=== PATIENT | female | born 1990 | race Caucasian/White ===

== ENCOUNTER 2018-07-28 07:13 | Inpatient (IN) | payer BC ==
[2018-07-28] MEDS ORDERED: Ampicillin 2 GM AdvVial IV ONE (07:43)
[2018-07-28] MEDS ORDERED: Sodium Chloride 0.9% 100 ML ONE (07:43)
[2018-07-28] MEDS ORDERED: Lactated Ringers 1,000 ML ONE (07:43)
[2018-07-28] MEDS ORDERED: Calcium Carbonate 500 MG Tab.Chew PO PRN (07:44)
[2018-07-28] MEDS ORDERED: Ondansetron 4 MG/2 ML SDV IVPUSH PRN ×2 (07:44→08:00)
[2018-07-28] MEDS ORDERED: Sodium Chloride 0.9% 10 ML Syringe FLUSH PRN (07:44)
[2018-07-28] MEDS ORDERED: Nalbuphine 20 MG/ML 1 ML Syringe IVPUSH PRN (07:44)
[2018-07-28] MEDS ORDERED: Oxytocin/Lactated Ringers 10 UNIT/1,000 ML BAG IV SCH ×2 (07:45→11:45)
[2018-07-28] MEDS ORDERED: Lactated Ringers 1,000 ML IV SCH (07:45)
[2018-07-28] MEDS ORDERED: Ampicillin 2 GM in Sodium Chloride 0.9% 100 ML IV ONE (08:00)
[2018-07-28] MEDS ORDERED: ePHEDrine 50 MG/ML SDV IVPUSH PRN (08:00)
[2018-07-28] MEDS ORDERED: Phenylephrine 1 MG in Sodium Chloride 0.9% 10 ML IV SCH (08:00)
[2018-07-28] MEDS ORDERED: fentaNYL 100 MCG/2 ML SDV EPIDUR PRN (08:00)
[2018-07-28] MEDS ORDERED: Bupivacaine/fentaNYL/NS 100 ML Bag EPIDUR SCH (08:15)
--- NOTE | 2018-07-28 10:08 | PCM.PREANE ---
Preanesthetic Assessment - Anesthesia/Transfusion/Family Hx Anesthesia History: Prior Anesthesia Without Reaction (only a prior epidural) Family History of Anesthesia Reaction: No Transfusion History: No Prior Transfusion(s) Intubation History: Unknown - Review of Systems General: No Symptoms (stuffy nose, cough) Pulmonary: No Symptoms Cardiovascular: No Symptoms (history of being slightly anemic) Gastrointestinal: No Symptoms (GERD), Diarrhea, Vomiting Neurological: No Symptoms Other: Reports: None - Physical Assessment NPO Status Date: 07/28/18 NPO Status Time: 10:00 Pulse: 84 O2 Sat by Pulse Oximetry: 99 Respiratory Rate: 18 Blood Pressure: 104/68 Temperature: 36.6 C Vital Signs: Last Vital Signs Temp 36.6 C 07/28/18 07:44 Pulse 84 07/28/18 07:44 Resp 18 07/28/18 07:44 BP 104/68 07/28/18 07:44 Pulse Ox Height: 1.6 m Weight: 83.007 kg ASA Class: 2 Mental Status: Alert & Oriented x3 Airway Class: Mallampati = 2 Dentition: Reports: Normal Dentition, Caries Thyro-Mental Finger Breadths: 3 Mouth Opening Finger Breadths: 3 ROM/Head Extension: Full Lungs: Clear to Auscultation, Normal Respiratory Effort Cardiovascular: Regular Rate, Regular Rhythm, No Murmurs - Lab Values: Laboratory Last Values WBC 6.42 K/mm3 (3.98-10.04) 07/28/18 08:16 RBC 4.07 M/mm3 (3.98-5.22) 07/28/18 08:16 Hgb 12.5 gm/L (11.2-15.7) 07/28/18 08:16 Hct 37.0 % (34.1-44.9) 07/28/18 08:16 MCV 90.9 fl (79.4-94.8) 07/28/18 08:16 MCH 30.7 pg (25.6-32.2) 07/28/18 08:16 MCHC 33.8 g/dl (32.2-35.5) 07/28/18 08:16 RDW Std Deviation 45.8 fL (36.4-46.3) 07/28/18 08:16 Plt Count 122 K/mm3 (182-369) L 07/28/18 08:16 MPV 11.6 fl (9.4-12.3) 07/28/18 08:16 Neut % (Auto) 70.1 % (34.0-71.1) 07/28/18 08:16 Lymph % (Auto) 16.2 % (19.3-51.7) L 07/28/18 08:16 [place] % (Auto) 12.0 % (4.7-12.5) 07/28/18 08:16 Eos % (Auto) 0.6 (0.7-5.8) L 07/28/18 08:16 Baso % (Auto) 0.2 % (0.1-1.2) 07/28/18 08:16 Neut # (Auto) 4.50 K/mm3 (1.56-6.13) 07/28/18 08:16 Lymph # (Auto) 1.04 K/mm3 (1.18-3.74) L 07/28/18 08:16 [place] # (Auto) 0.77 K/mm3 (0.24-0.36) H 07/28/18 08:16 Eos # (Auto) 0.04 K/mm3 (0.04-0.36) 07/28/18 08:16 Baso # (Auto) 0.01 K/mm3 (0.01-0.08) 07/28/18 08:16 Above labs reviewed and noted and within acceptable ranges to proceed with epidural is patient desires. - Allergies Allergies/Adverse Reactions: Allergies Allergy/AdvReac Type Severity Reaction Status Date / Time No Known Allergies Allergy Verified 04/05/16 18:25 - Anesthesia Plan Pre-Op Medication Ordered: None - Acknowledgements Anesthesia Type Planned: Epidural Pt an Appropriate Candidate for the Planned Anesthesia: Yes Alternatives and Risks of Anesthesia Discussed w Pt/Guardian: Yes Pt/Guardian Understands and Agrees with Anesthesia Plan: Yes PreAnesthesia Questionnaire - Past Health History Medical/Surgical History: Denies Medical/Surgical History [employer] History: Reports: , Other (See Below) Other OB/BYN History: macrosomia - SUBSTANCE USE Smoking Status *Q: Never Smoker Second Hand Smoke Exposure: No Recreational Drug Use History: No - HOME MEDS Home Medications: Home Meds Vit No.130/Iron/FA [ Tablet] 1 each PO DAILY 07/26/14 [History] Docusate Sodium [Colace] 100 mg PO BID PRN #60 cap 08/03/14 [Rx] Ibuprofen [IJD: Ibuprofen] 600 mg PO Q4H PRN #30 tablet 04/07/16 [Rx] - CURRENT (IN HOUSE) MEDS Current Meds: Current Medications Calcium Carbonate/Glycine (Tums) 1,000 mg PO Q2H PRN PRN Reason: Indigestion Ephedrine Sulfate (Ephedrine Sulfate) 5 mg IVPUSH ASDIRECTED PRN PRN Reason: Hypotension Fentanyl (Sublimaze) 100 mcg EPIDUR Q3H PRN PRN Reason: Pain Fentanyl/Bupivacaine HCl (Fentanyl/Bupivacaine/Ns 2 Mcg-0.125% 100 Ml) 100 ml EPIDUR ASDIRECTED CARLIE Ampicillin Sodium 1 gm/ Sodium (Chloride) 100 mls @ 200 mls/hr IV Q4H CARLIE Lactated Ringer's (Ringers, Lactated) 1,000 mls @ 100 mls/hr IV ASDIRECTED CARLIE Oxytocin/Lactated Ringer's (Pitocin In Lr 10 Units/1,000 Ml) 10 unit in 1,000 mls @ 500 mls/hr IV .CONTINUOUS CARLIE Phenylephrine HCl 1 mg/ Sodium (Chloride) 10.1 mls @ 1 mls/sec IV TITRATE CARLIE; Protocol Nalbuphine HCl (Nubain) 10 mg IVPUSH Q2H PRN PRN Reason: pain Ondansetron HCl (Zofran) 4 mg IVPUSH Q4H PRN PRN Reason: Nausea/Vomiting Ondansetron HCl (Zofran) 4 mg IVPUSH ONETIME PRN PRN Reason: Nausea/Vomiting Sodium Chloride (Saline Flush) 10 ml FLUSH ASDIRECTED PRN PRN Reason: Keep Vein Open Discontinued Medications Ampicillin Sodium (Ampicillin) Confirm Administered Dose 2 gm IV .STK-MED ONE Stop: 07/28/18 07:44 Last Admin: 07/28/18 09:18 Dose: Not Given Lactated Ringer's (Ringers, Lactated) Confirm Administered Dose 1,000 mls @ as directed .ROUTE .STK-MED ONE Stop: 07/28/18 07:44 Last Admin: 07/28/18 09:22 Dose: Not Given Sodium Chloride (Normal Saline) Confirm Administered Dose 100 mls @ as directed .ROUTE .STK-MED ONE Stop: 07/28/18 07:44 Last Admin: 07/28/18 09:18 Dose: Not Given Ampicillin Sodium 2 gm/ Sodium (Chloride) 100 mls @ 200 mls/hr IV ONETIME ONE Stop: 07/28/18 08:29
[2018-07-28] MEDS: Ampicillin 1 GM in Sodium Chloride 0.9% 100 ML IV SCH ×2 (11:54→15:46)
--- NOTE | 2018-07-28 14:04 | HP ---
DATE OF ADMISSION: 07/28/2018 ADMISSION DIAGNOSIS: A 39-3/7th weeks' intrauterine , elective induction of labor. HISTORY OF PRESENT ILLNESS: The patient is a 27-year-old 5, para 4-0-0-4, white female, who is admitted for elective induction of labor. She is presently at 39-3/7th weeks' gestational age with an JET of 08/01/2018. JET is determined by early ultrasound on 01/25/2018 at 13-1/7th weeks' gestational age. Her last menstrual period was 10/18/2017, but not absolute. Ultrasound is used for dating. She is presently 2 cm, 80% effaced, -4 station, mid position, very soft upon last evaluation in the clinic. On evaluation today, 3 cm, 80% effaced, -2, mid anterior, very soft. Artificial rupture of membranes is undertaken with resultant clear amniotic fluid. MODERATE NEEDS TEACHER HISTORY: 5, para 4-0-0-4 with the patient having menarche at age 14. Cycles q.28 days. No control at the time of conception. Positive hCG is 11/28/2017. Previous deliveries have included the followin. Male infant born 08/01/2012 at 39 weeks' gestational age - 8 pounds 4 ounces - child's name is Richar Garcia. 2. Female infant born [birth year]18[birth year]2010 at 41 weeks' gestational age - 18 hours of labor - 8 pounds 7 ounces - forceps delivery - child's name is Eden. 3. Male born [birth year]2012 at 39 weeks' gestational age - 8 hours of labor - 9 pounds 2 ounces - child's name is Roger. 4. Female born 04/06/2014 - 39-3/7th weeks' gestational age - 4 hours of labor - child's name is Ayesha Mcfarlane. COURSE: The patient's course started in clinic on 01/25/2018, at which time ultrasound revealed her dating as described above. She was seen on a regular basis. She made good fundal height growth. Her vital signs were stable throughout the course. Her weight gain was from 161.4 to 183 pounds. LABORATORY TESTING: In shows her blood type to be O positive with a negative antibody screen. First hemoglobin was 12.7 and platelets were 161,000. She is rubella immune. RPR is nonreactive. Urine culture initially showed Klebsiella pneumoniae. The patient was treated. Hepatitis B surface antigen and HIV assays were both negative. Chlamydia and gonorrhea both negative. Second trimester hemoglobin was 11.6. The patient declined 1-hour GTT. Her group B strep screen was positive. ALLERGIES: None. CURRENT MEDICATIONS: 1. Ferrous sulfate 28 mg elemental iron per day. 2. gummy bears. 3. Calcium 1 tablet daily. PAST MEDICAL HISTORY: 1. Normal spontaneous vaginal delivery x4. 2. Depression symptoms with first . PAST SURGICAL HISTORY: Unremarkable. FAMILY HISTORY: Mother is , cause unknown, questionable overdose. Father is secondary to leukemia. One sister alive and well. Maternal grandmother is secondary to a motor vehicle accident. Maternal grandfather status unknown. Paternal grandmother is alive, but with a history of breast cancer. Paternal grandfather is alive, but with a history of alcohol abuse. No , anesthesia, bleeding, or blood clotting problems noted in the family. SOCIAL HISTORY: The patient is , lives in [place]. 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 She does not use any significant amounts of alcohol, drugs, or tobacco. REVIEW OF SYSTEMS: GENERAL: The patient has no concerns. She is reporting good activity. SKIN: Negative. CARDIOVASCULAR: No chest pain or exercise intolerance. RESPIRATORY: No infectious symptoms or shortness of breath. BREASTS: Changes associated with . The patient does plan to breast feed. GI: Negative. : Changes associated with including increased fundal height growth. MUSCULOSKELETAL: Negative other than occasional edema. NEUROLOGICAL: Negative. PHYSICAL EXAMINATION: GENERAL: The patient is a well-developed, well-nourished, pleasant female, stated age, in no acute distress. VITAL SIGNS: Blood pressure on last evaluation in the clinic was 110/70. Weight was 183. First weight was 164.5. Her height is 5 feet 3 inches. Pregravid body mass index was 27.5. SKIN: Warm, dry, without lesions. HEENT, NECK, AND BACK: Within normal limits. LUNGS: Clear with good breath sounds in all lung barfield. CARDIOVASCULAR: Shows regular rate and rhythm without murmurs. BREASTS: Deferred. ABDOMEN: Protuberant with with last fundal height in clinic at 40 cm with baby in vertex presentation. CERVIX: On last evaluation in the clinic was 2 cm dilated, 80% effaced, -4 station, very soft, mid position. EXTREMITIES AND NEUROLOGICAL: Grossly within normal limits. ASSESSMENT: 1. A 39-3/7th weeks' intrauterine with an JET of 08/01/2018, in for elective induction of labor. 2. Group B strep screen positive. The patient has received first dose of antibiotics. 3. RPR is nonreactive. 4. Rubella titer shows immunity. 5. The patient declined Tdap. 6. The patient declined genetic testing. 7. Risk factors for the include history of macrosomic babies x2. PLAN: 1. Anticipate normal spontaneous vaginal delivery. 2. The patient desires natural labor. 3. Intermittent monitoring. 4. Routine labor care. 5. Group B strep prophylaxis per protocol with ampicillin. MMODAL /[id number]
--- NOTE | 2018-07-28 16:17 | PCM.SN ---
- Free Text/Narrative Note: Edita is a 27-year-old 5 now para 5005 white female who was admitted this a.m. for elective induction of labor at 39+ weeks gestational age. She she was induced with artificial rupture membranes with resultant clear amniotic fluid. She then was augmented with Pitocin IV. She progressed rapidly through labor and became completely dilated by approximately 1550 hrs.. She pushed 1 with 1 contraction and then delivered a viable, gallo, male with Apgars of 8 and 8, weight of 8 lbs. 6 oz. (3790 g), length of 20.0 inches in an occiput anterior position at 1552 hrs.. Baby was delivered by the father with my assistance. Baby was placed on mom's abdomen. The umbilical cord was allowed to pulsate for approximately 2 minutes then was clamped and cut by the father of the baby. IV Pitocin was started after the delivery the baby. Estimated blood loss was 100 mL. Placenta delivered at 1558 hrs. in a Hendrickson presentation, appeared intact and complete and was discarded per patient desire. Perineum was intact and no sutures were necessary. Patient plans to breast-feed. Condition: Good
[2018-07-28] MEDS ORDERED: Witch Hazel Medicated Pads 100/Jar TOP PRN (16:56)
[2018-07-28] MEDS ORDERED: Lanolin 100% Cream 7 GM Tube TOP PRN (16:56)
[2018-07-28] MEDS ORDERED: Benzocaine/Menthol 20%-0.5% Spray 56 GM Canister TOP PRN (16:56)
[2018-07-28] MEDS ORDERED: Docusate Sodium 100 MG Cap PO PRN (16:56)
[2018-07-28] MEDS ORDERED: Acetaminophen 325 MG Tab PO PRN (16:56)
[2018-07-28] MEDS: Ibuprofen 600 MG Tab PO PRN ×2 (17:25→21:32)
[2018-07-29] MEDS: Ibuprofen 600 MG Tab PO PRN ×3 (03:32→15:30)
--- NOTE | 2018-07-29 07:06 | PCM.PNPP ---
- General Info Date of Service: 07/29/18 Functional Status: Reports: Pain Controlled, Tolerating Diet, Ambulating, Urinating - Review of Systems General: Reports: No Symptoms Pulmonary: Reports: No Symptoms Cardiovascular: Reports: No Symptoms Gastrointestinal: Reports: No Symptoms Genitourinary: Reports: No Symptoms Musculoskeletal: Reports: No Symptoms Neurological: Reports: No Symptoms - Patient Data Vital Signs - Most Recent: Last Vital Signs Temp 37.3 C 07/28/18 21:00 Pulse 89 07/28/18 21:00 Resp 14 07/28/18 21:00 BP 103/60 07/28/18 21:00 Pulse Ox 99 07/28/18 21:00 Weight - Most Recent: 83.007 kg I&O - Last 24 Hours: Intake & Output 07/28/18 07/29/18 07/29/18 22:59 06:59 14:59 Intake Total 1750 Balance 1750 Lab Results - Last 24 Hours: Laboratory Results - last 24 hr 07/28/18 07/28/18 Range/Units 08:16 08:16 WBC 6.42 (3.98-10.04) K/mm3 RBC 4.07 (3.98-5.22) M/mm3 Hgb 12.5 (11.2-15.7) gm/L Hct 37.0 (34.1-44.9) % MCV 90.9 (79.4-94.8) fl MCH 30.7 (25.6-32.2) pg MCHC 33.8 (32.2-35.5) g/dl RDW Std Deviation 45.8 (36.4-46.3) fL Plt Count 122 L (182-369) K/mm3 MPV 11.6 (9.4-12.3) fl Neut % (Auto) 70.1 (34.0-71.1) % Lymph % (Auto) 16.2 L (19.3-51.7) % [place] % (Auto) 12.0 (4.7-12.5) % Eos % (Auto) 0.6 L (0.7-5.8) Baso % (Auto) 0.2 (0.1-1.2) % Neut # (Auto) 4.50 (1.56-6.13) K/mm3 Lymph # (Auto) 1.04 L (1.18-3.74) K/mm3 [place] # (Auto) 0.77 H (0.24-0.36) K/mm3 Eos # (Auto) 0.04 (0.04-0.36) K/mm3 Baso # (Auto) 0.01 (0.01-0.08) K/mm3 RPR Non-reactive (NONREACTIVE) Med Orders - Current: Current Medications Acetaminophen (Tylenol) 650 mg PO Q4H PRN PRN Reason: mild pain or fever Benzocaine/Menthol (Dermoplast Pain Relief [place]) 0 gm TOP ASDIRECTED PRN PRN Reason: Perineal Comfort Measure Last Admin: 07/28/18 17:45 Dose: 1 can Docusate Sodium (Colace) 100 mg PO BID PRN PRN Reason: Constipation Emollient Ointment (Lansinoh Hpa) 0 gm TOP ASDIRECTED PRN PRN Reason: Sore Nipples Ibuprofen (Motrin) 600 mg PO Q4H PRN PRN Reason: Mild pain or fever Last Admin: 07/29/18 03:32 Dose: 600 mg Prenat Multivit/[place]/Iron/Folic Ac ( Plus Iron) 1 each PO DAILY [facility] Witch Jazmine (Tucks) 1 pad TOP ASDIRECTED PRN PRN Reason: Hemorrhoid pain Last Admin: 07/28/18 17:44 Dose: 1 can Discontinued Medications Ampicillin Sodium (Ampicillin) Confirm Administered Dose 2 gm IV .STK-MED ONE Stop: 07/28/18 07:44 Last Admin: 07/28/18 09:18 Dose: Not Given Calcium Carbonate/Glycine (Tums) 1,000 mg PO Q2H PRN PRN Reason: Indigestion Ephedrine Sulfate (Ephedrine Sulfate) 5 mg IVPUSH ASDIRECTED PRN PRN Reason: Hypotension Fentanyl (Sublimaze) 100 mcg EPIDUR Q3H PRN PRN Reason: Pain Fentanyl/Bupivacaine HCl (Fentanyl/Bupivacaine/Ns 2 Mcg-0.125% 100 Ml) 100 ml EPIDUR ASDIRECTED [facility] Lactated Ringer's (Ringers, Lactated) Confirm Administered Dose 1,000 mls @ as directed .ROUTE .STK-MED ONE Stop: 07/28/18 07:44 Last Admin: 07/28/18 09:22 Dose: Not Given Sodium Chloride (Normal Saline) Confirm Administered Dose 100 mls @ as directed .ROUTE .STK-MED ONE Stop: 07/28/18 07:44 Last Admin: 07/28/18 09:18 Dose: Not Given Ampicillin Sodium 2 gm/ Sodium (Chloride) 100 mls @ 200 mls/hr IV ONETIME ONE Stop: 07/28/18 08:29 Last Admin: 07/28/18 07:45 Dose: 200 mls/hr Ampicillin Sodium 1 gm/ Sodium (Chloride) 100 mls @ 200 mls/hr IV Q4H CARLIE Last Admin: 07/28/18 15:46 Dose: 200 mls/hr Lactated Ringer's (Ringers, Lactated) 1,000 mls @ 100 mls/hr IV ASDIRECTED CARLIE Last Admin: 07/28/18 07:45 Dose: 100 mls/hr Oxytocin/Lactated Ringer's (Pitocin In Lr 10 Units/1,000 Ml) 10 unit in 1,000 mls @ 500 mls/hr IV .CONTINUOUS CARLIE Phenylephrine HCl 1 mg/ Sodium (Chloride) 10.1 mls @ 1 mls/sec IV TITRATE CARLIE; Protocol Oxytocin/Lactated Ringer's (Pitocin In Lr 10 Units/1,000 Ml) 10 unit in 1,000 mls @ 12 mls/hr IV TITRATE CARLIE; Protocol Last Titration: 07/28/18 14:25 Dose: 8 munits/min, 48 mls/hr Nalbuphine HCl (Nubain) 10 mg IVPUSH Q2H PRN PRN Reason: pain Ondansetron HCl (Zofran) 4 mg IVPUSH Q4H PRN PRN Reason: Nausea/Vomiting Ondansetron HCl (Zofran) 4 mg IVPUSH ONETIME PRN PRN Reason: Nausea/Vomiting Sodium Chloride (Saline Flush) 10 ml FLUSH ASDIRECTED PRN PRN Reason: Keep Vein Open - Interaction Disposition, : in Room with Family Interaction: Holding Infant Infant Feeding: Breastfed Infant; Nursed Well Support Person: - Recovery Exam Fundal Tone: Firm Fundal Level: 1 Fingerbreadths Below Umbilicus Fundal Placement: Midline Lochia Amount: Small Lochia Color: Rubra/Red Perineum Description: Intact, Minimal Bruising/Swelling Episiotomy/Laceration: None Bladder Status: Nonpalpable Urinary Elimination: Voided - Exam General: Alert, Oriented, Cooperative GI/Abdominal Exam: Soft, Non-Tender Extremities: Normal Inspection Skin: Warm, Dry, Intact - Problem List & Annotations (1) Normal labor SNOMED Code(s): 38492482 Code(s): O80 - ENCOUNTER FOR FULL-TERM UNCOMPLICATED DELIVERY; Z37.9 - OUTCOME OF DELIVERY, UNSPECIFIED Status: Acute Current Visit: No (2) Vaginal delivery SNOMED Code(s): 588157219 Code(s): O80 - ENCOUNTER FOR FULL-TERM UNCOMPLICATED DELIVERY Status: Acute Current Visit: No - Problem List Review Problem List Initiated/Reviewed/Updated: Yes - Assessment Assessment:: PPD#1 from - Plan Plan:: * Routine cares * Encourage breast feeding * Discharge home today per patient preference
--- NOTE | 2018-07-29 07:07 | PCM.DCSUM1 ---
Discharge Summary - Discharge Data Discharge Date: 07/29/18 Discharge Disposition: Home, Self-Care 01 Condition: Good - Patient Summary/Data Complications: None Consults: None Recommended Follow-up Testing/Procedures: Follow up in 2 weeks for check Hospital Course: 27 y/o at 39 3/7 wks who presented for IOL. She progressed well to complete dilation and underwent an uncomplicated . See delivery note for full details. she did well and was discharged home on PPD#1 - Patient Instructions Diet: Regular Diet as Tolerated Activity: As Tolerated Activity, Other: Pelvic Rest for 6 weeks Driving: May Drive Today Showering/Bathing: May Shower Showering/Bathing, Other: May Bathe Notify Provider of: Fever, Increased Pain, Swelling and Redness, Drainage, Nausea and/or Vomiting - Discharge Plan *PRESCRIPTION DRUG MONITORING PROGRAM REVIEWED*: Not Applicable *COPY OF PRESCRIPTION DRUG MONITORING REPORT IN PATIENT HECTOR: Not Applicable Home Medications: Home Meds Vit No.130/Iron/FA [ Tablet] 1 each PO DAILY 07/26/14 [History] Acetaminophen [Tylenol] 650 mg PO Q4H PRN tablet 07/28/18 [Rx] Docusate Sodium [Colace] 100 mg PO BID PRN cap 07/28/18 [Rx] Ibuprofen [Motrin] 600 mg PO Q4H PRN tablet 07/28/18 [Rx] Referrals: Malik Holliday MD [Primary Care Provider] - (2 weeks for check) - Discharge Summary/Plan Comment DC Time >30 min.: No - Patient Data Vitals - Most Recent: Last Vital Signs Temp 37.3 C 07/28/18 21:00 Pulse 89 07/28/18 21:00 Resp 14 07/28/18 21:00 BP 103/60 07/28/18 21:00 Pulse Ox 99 07/28/18 21:00 Weight - Most Recent: 83.007 kg I&O - Last 24 hours: Intake & Output 07/28/18 07/29/18 07/29/18 22:59 06:59 14:59 Intake Total 1750 Balance 1750 Lab Results - Last 24 hrs: Laboratory Results - last 24 hr 07/28/18 07/28/18 Range/Units 08:16 08:16 WBC 6.42 (3.98-10.04) K/mm3 RBC 4.07 (3.98-5.22) M/mm3 Hgb 12.5 (11.2-15.7) gm/L Hct 37.0 (34.1-44.9) % MCV 90.9 (79.4-94.8) fl MCH 30.7 (25.6-32.2) pg MCHC 33.8 (32.2-35.5) g/dl RDW Std Deviation 45.8 (36.4-46.3) fL Plt Count 122 L (182-369) K/mm3 MPV 11.6 (9.4-12.3) fl Neut % (Auto) 70.1 (34.0-71.1) % Lymph % (Auto) 16.2 L (19.3-51.7) % [place] % (Auto) 12.0 (4.7-12.5) % Eos % (Auto) 0.6 L (0.7-5.8) Baso % (Auto) 0.2 (0.1-1.2) % Neut # (Auto) 4.50 (1.56-6.13) K/mm3 Lymph # (Auto) 1.04 L (1.18-3.74) K/mm3 [place] # (Auto) 0.77 H (0.24-0.36) K/mm3 Eos # (Auto) 0.04 (0.04-0.36) K/mm3 Baso # (Auto) 0.01 (0.01-0.08) K/mm3 RPR Non-reactive (NONREACTIVE) Med Orders - Current: Current Medications Acetaminophen (Tylenol) 650 mg PO Q4H PRN PRN Reason: mild pain or fever Benzocaine/Menthol (Dermoplast Pain Relief [place]) 0 gm TOP ASDIRECTED PRN PRN Reason: Perineal Comfort Measure Last Admin: 07/28/18 17:45 Dose: 1 can Docusate Sodium (Colace) 100 mg PO BID PRN PRN Reason: Constipation Emollient Ointment (Lansinoh Hpa) 0 gm TOP ASDIRECTED PRN PRN Reason: Sore Nipples Ibuprofen (Motrin) 600 mg PO Q4H PRN PRN Reason: Mild pain or fever Last Admin: 07/29/18 03:32 Dose: 600 mg Prenat Multivit/[place]/Iron/Folic Ac ( Plus Iron) 1 each PO DAILY [facility] Bladimir Lucero (Tucks) 1 pad TOP ASDIRECTED PRN PRN Reason: Hemorrhoid pain Last Admin: 07/28/18 17:44 Dose: 1 can Discontinued Medications Ampicillin Sodium (Ampicillin) Confirm Administered Dose 2 gm IV .STK-MED ONE Stop: 07/28/18 07:44 Last Admin: 07/28/18 09:18 Dose: Not Given Calcium Carbonate/Glycine (Tums) 1,000 mg PO Q2H PRN PRN Reason: Indigestion Ephedrine Sulfate (Ephedrine Sulfate) 5 mg IVPUSH ASDIRECTED PRN PRN Reason: Hypotension Fentanyl (Sublimaze) 100 mcg EPIDUR Q3H PRN PRN Reason: Pain Fentanyl/Bupivacaine HCl (Fentanyl/Bupivacaine/Ns 2 Mcg-0.125% 100 Ml) 100 ml EPIDUR ASDIRECTED [facility] Lactated Ringer's (Ringers, Lactated) Confirm Administered Dose 1,000 mls @ as directed .ROUTE .STK-MED ONE Stop: 07/28/18 07:44 Last Admin: 07/28/18 09:22 Dose: Not Given Sodium Chloride (Normal Saline) Confirm Administered Dose 100 mls @ as directed .ROUTE .STK-MED ONE Stop: 07/28/18 07:44 Last Admin: 07/28/18 09:18 Dose: Not Given Ampicillin Sodium 2 gm/ Sodium (Chloride) 100 mls @ 200 mls/hr IV ONETIME ONE Stop: 07/28/18 08:29 Last Admin: 07/28/18 07:45 Dose: 200 mls/hr Ampicillin Sodium 1 gm/ Sodium (Chloride) 100 mls @ 200 mls/hr IV Q4H [facility] Last Admin: 07/28/18 15:46 Dose: 200 mls/hr Lactated Ringer's (Ringers, Lactated) 1,000 mls @ 100 mls/hr IV ASDIRECTED [facility] Last Admin: 07/28/18 07:45 Dose: 100 mls/hr Oxytocin/Lactated Ringer's (Pitocin In Lr 10 Units/1,000 Ml) 10 unit in 1,000 mls @ 500 mls/hr IV .CONTINUOUS [facility] Phenylephrine HCl 1 mg/ Sodium (Chloride) 10.1 mls @ 1 mls/sec IV TITRATE CARLIE; Protocol Oxytocin/Lactated Ringer's (Pitocin In Lr 10 Units/1,000 Ml) 10 unit in 1,000 mls @ 12 mls/hr IV TITRATE CARLIE; Protocol Last Titration: 07/28/18 14:25 Dose: 8 munits/min, 48 mls/hr Nalbuphine HCl (Nubain) 10 mg IVPUSH Q2H PRN PRN Reason: pain Ondansetron HCl (Zofran) 4 mg IVPUSH Q4H PRN PRN Reason: Nausea/Vomiting Ondansetron HCl (Zofran) 4 mg IVPUSH ONETIME PRN PRN Reason: Nausea/Vomiting Sodium Chloride (Saline Flush) 10 ml FLUSH ASDIRECTED PRN PRN Reason: Keep Vein Open
[2018-07-29] MEDS ORDERED: Prenatal Multivitamin with Calcium/Folic Acid/Iron Tab PO SCH (09:00)
[2018-07-29 17:34] VITALS: BP 106/65
== END 2018-07-29 16:20 | disposition home or self-care (01) | DRG 560 ==
LOC: JD.OB 07:13 → OBSVTOIN 16:11 → JD.OB 16:11
PROVIDERS: ADMIT Obstetrics & Gynecology; ATTEND Obstetrics & Gynecology
PROC: 10E0XZZ Delivery of Products of Conception, External Approach (ICD-10-PCS; principal; 2018-07-28)
PROC: 10907ZC Drainage of Amniotic Fluid, Therapeutic from Products of Conception, Via Natural or Artificial Opening (ICD-10-PCS; 2018-07-28)
DX: O99.824 Streptococcus B carrier state complicating childbirth (principal); Z3A.39 39 weeks gestation of pregnancy; Z37.0 Single live birth; O69.81X0 Labor and delivery complicated by cord around neck, without compression, not applicable or unspecified
CPT/HCPCS: 36415; 59025; 59409; 85025; 86592; A9270-GY; J0290; J2590; J7030; J7120